=== PATIENT | male | born 1995 | race African-American/Black ===

== ENCOUNTER 2025-03-10 09:12 | Emergency (ER) | payer SELFPAY ==
--- NOTE | ~2025-03-10 | XR_ITS ---
EXAMINATION: XR chest 1V portable 03/10/2025 11:13 INDICATION: Cough and shortness of breath PROCEDURE: 2 view chest COMPARISON: No prior studies for comparison. FINDINGS: The lungs are clear. The cardiomediastinal silhouette is within normal limits. There are no pleural effusions. There is no pneumothorax suspected. IMPRESSION: 1: NO ACUTE CARDIOPULMONARY DISEASE. Reviewed, dictated and finalized at location O. IC ARTIST
[2025-03-10 09:21] VITALS: BP 140/65; PULSE 108; RESP 20; TEMP 37.2; O2SAT 97
--- OUTSIDE RECORDS SUMMARY | 2025-03-10 09:26 | XMS_ITS | Clinical Summary ---
Author Organization [facility] Address [facility] [place] [address] Care Team Providers Care Drying And Winding Supervisor Name Role Phone Unavailable Primary Care Provider Unavailabl e Encounters Date Type Department Care Team Description 03/10/2025 10:20 AM FOOT SETTER Office Visit [address] [phone] Shaylee Gray NP from Last 3 Months Social History Tobacco Use Types Packs/Day Years Used Date Smoking Tobacco: Never Assessed Sex and Gender Information Value Date Recorded Sex Assigned at Not on file Legal Sex Male 4:06 PM CDT Gender Identity Not on file Sexual Orientation Not on file Plan of Treatment Upcoming Encounters Date Type Department Care Team (Late st Contact Info) Description 03/10/2025 10:20 AM FOOT SETTER Office Visit [address] [phone] Shaylee Gray TITLE COORDINATOR [address] [place] [address] 07/18/2025 10:20 AM CDT Office Visit [facility] - [place] [address] [address] [place] [address] [place] [address] [place] [address] Health Maintenance Due Date Last Done Comments Annual Physical 2000 Hepatitis C 2015 DTaP, Tdap and Td Vaccines (7 - Td or Tdap) 09/26/2019 09/25/2009, 12/03/2001, 06/12/1998, Additional history exists HPV Vaccines (1 - 3-dose SCDM series) 2024 COVID-19 Vaccine (3 - season) 2024 09/02/2020, 08/08/2020 Influenza Adult (#1) 2024 Hepatitis B Vaccines Completed 1997, 1997, 1997 Meningococcal Vaccine Completed 08/23/2014, 009 Hepatitis A Vaccines Aged Out No long er eligible based on patient's age to complete this topic Meningococcal B Vaccine Aged Out No l onger eligible based on patient's age to complete this topic Pneumococcal Vaccine: Pediatrics (0 to 5 Years) and At-Risk Patients (6 to 49 Years) Aged Out No longer eligible based on patient's age to complete this topic RSV Immunizations Under 20 Months Aged Out No longer eligible based on patient's age to complete this topic
--- OUTSIDE RECORDS SUMMARY | 2025-03-10 10:20 | XMS_ITS | Encounter Summary ---
Author Organization [facility] Address [facility] [place] [address] Care Team Providers Care Ash Collector Name Role Phone Unavailable Primary Care Provider Unavailabl e Encounter Details Date Type Department Care Team (Late st Contact Info) Description 03/10/2025 10:20 AM HEALTH SERVICE WORKER Office Visit [facility] - [place] [address] [place] [phone] Shaylee Gray NP [address] [place] [address] Social History Tobacco Use Types Packs/Day Years Used Date Smoking Tobacco: Never Assessed Sex and Gender Information Value Date Recorded Sex Assigned at Not on file Legal Sex Male 4:06 PM CDT Gender Identity Not on file Sexual Orientation Not on file documented as of this encounter Plan of Treatment Upcoming Encounters Date Type Department Care Team (Late st Contact Info) Description 07/18/2025 10:20 AM CDT Office Visit [facility] Multispecialty Care - [place] [address] [address] [place] [address] Sue Owen MD [address] [place] [address] documented as of this encounter Visit Diagnoses Not on filedocumented in this encounter
--- OUTSIDE RECORDS SUMMARY | 2025-03-10 10:20 | XMS_ITS | Encounter Summary ---
Author Organization [facility] Address [facility] [place] [address] Care Team Providers Care Fry Cook Name Role Phone Unavailable Primary Care Provider Unavailabl e Encounter Details Date Type Department Care Team (Late st Contact Info) Description 03/10/2025 10:20 AM PHOTOGRAPHIC PRINTER Office Visit [facility] Family Medicine - [place] [address] [place] [address] Shaylee Gray NP [address] [place] [address] Social History Tobacco Use Types Packs/Day Years [...] Description 07/18/2025 10:20 AM CDT Office Visit [facility] Multispecialty Care - [place] [address] [address] [place] [address] Sue Owen MD [address] [place] [address] documented as of this encounter Visit Diagnoses Not on filedocumented in this encounter
[2025-03-10 10:24] VITALS: PULSE 94; RESP 18; O2SAT 99
[2025-03-10 10:52] LABS: Influenza A QL RT-PCR Positive (Negative); Influenza B QL RT-PCR Negative (Negative); RSV RNA, RT-PCR Negative (Negative); SARS-CoV-2 RNA PCR Negative (Negative)
--- NOTE | 2025-03-10 11:15 | ED_ITS ---
HPI - General Adult General Chief complaint: Upper Respiratory Infection Stated complaint: cold sx Time Seen by Provider: 03/10/25 10:48 History of Present Illness HPI narrative: 30-year-old male presenting to the emergency department for evaluation for sore throat body ache, low-grade fever chills and fatigue. Patient reports he did have some symptoms around but then felt improved. Patient returned from [place] and began having worsening symptoms yesterday. Patient denies any associated current nausea vomiting or diarrhea. Patient has had some cough and congestion. Related Data Allergies Allergy/AdvReac Type Severity Reaction Status Date / Time No Known Allergies Allergy Verified 03/10/25 09:25 Review of Systems Review of Systems: All systems reviewed & are unremarkable except as noted in HPI and below Exam Narrative: APPEARANCE: Well appearing, no pain, no distress, well-nourished. HEAD: normocephalic, atraumatic. EYES: PERRLA/EOMI, conjunctivae clear. NOSE: Normal no drainage EARS:TMS clear with good light reflex. THROAT: Pharynx clear, no exudate. NECK: Supple. No adenopathy, no masses. RESPIRATORY: Airway patent, respirations nonlabored. Clear to auscultation bilaterally, no rales, rhonchi, wheezing. CARDIOVASCULAR: Regular rate and rhythm without murmurs rubs or gallops. ABDOMINAL: Soft, nontender, nondistended, normal bowel sounds MUSCULOSKELETAL: Moves all extremities. Strength/ROM intact, No edema, No calf tenderness. NEURO: Alert. Cranial nerves II through XII intact. Good gait. Good coordination SKIN: Warm, dry. Normal Color Course Vital Signs Vital signs: Vital Signs Temperature 98.9 F 03/10/25 09:21 Pulse Rate 108 H 03/10/25 09:21 Respiratory Rate 20 03/10/25 09:21 Blood Pressure 140/65 03/10/25 09:21 Pulse Oximetry 97 03/10/25 09:21 Oxygen Delivery Room Air 03/10/25 09:21 Temperature 98.9 F 03/10/25 09:21 Pulse Rate 94 03/10/25 10:24 Respiratory Rate 18 03/10/25 10:24 Blood Pressure 140/65 03/10/25 09:21 Pulse Oximetry 97 03/10/25 11:56 Oxygen Delivery Room Air 03/10/25 11:56 MDM MDM Narrative Medical decision making narrative: 30-year-old male presents to the emergency department for evaluation for cough congestion body aches and fatigue. Patient was positive for influenza A patient was negative for RSV and for COVID. Chest x-ray showed no acute cardiopulmonary abnormality. Patient was discharged home with instructions for Tylenol ibuprofen albuterol and Tessalon Perles. Differential Diagnosis Differential Diagnosis: COVID, RSV, influenza, pneumonia Lab Data Labs: Lab Results 03/10/25 03/10/25 Range/Units 10:11 11:16 Influenza A (RT-PCR) Positive A (Negative) Influenza B (RT-PCR) Negative (Negative) RSV (RT-PCR) Negative (Negative) SARS-CoV-2 RNA (RT-PCR) Negative (Negative) Group A Strep (PCR) Not detected (Negative) Imaging Data Attestation: I personally reviewed and interpreted this imaging study as follows: My impression: Chest x-ray: No acute cardiopulmonary abnormality Radiologist's impression: ITS Impressions Chest X-Ray 03/10/25 11:14 IMPRESSION: 1: NO ACUTE CARDIOPULMONARY DISEASE. Discharge Plan Discharge Clinical Impression: Influenza Patient Disposition: Home Condition: Stable Instructions: Antibiotic Form, Influenza (ED), Viral Syndrome (ED) Additional Instructions: Tylenol and ibuprofen for pain control and for body aches fatigue. Tessalon Perles for cough. Albuterol as needed for shortness of breath. Have close follow-up with your primary care physician. Patient Language: Slovak Prescriptions: New benzonatate 100 mg capsule 100 mg PO TID PRN (Reason: cough) Qty: 14 0RF albuterol sulfate 90 mcg/actuation HFA aerosol inhaler 1 puff inhalation QID Qty: 6.7 0RF Follow-up/Referrals: PHYSICIAN,WIRE TWISTING MACHINE OPERATOR [Primary Care Provider, Internal Medicine]
[2025-03-10 11:46] LABS: Strep Group A RT-PCR NOT DETECTED (Negative)
--- OUTSIDE RECORDS SUMMARY | 2025-03-10 11:52 | XMS_ITS | Clinical Summary ---
Author Organization [facility] Address [facility] [place] [address] Care Team Providers Care Apn Name Role Phone Unavailable Primary Care Provider Unavailabl e Encounters Date Type Department Care Team Description 03/10/2025 10:20 AM GEOLOGY PROFESSOR Office Visit [facility] Family Medicine - [address] [phone] Shaylee Gray NP from Last 3 Months [...] Description 07/18/2025 10:20 AM CDT Office Visit [facility] Multispecialty [address] [place] [address] [address] [place] [address] Sue Owen MD [address] [place] [address] Health Maintenance Due Date Last Done Comments Annual Physical 2000 Hepatitis C 2015 DTaP, Tdap and Td Vaccines (7 - Td or Tdap) 09/26/2019 09/25/2009, 12/03/2001, 06/12/1998, Additional history exists HPV Vaccines (1 - 3-dose SCDM series) 2024 PHQ-2 (Physician [place]) 03/13/2024 COVID-19 Vaccine (3 - 2025-26 season) 2024 09/02/2020, 08/08/2020 Influenza Adult (#1) [...]
[2025-03-10 11:56] VITALS: O2SAT 97
== END 2025-03-10 11:56 | disposition home or self-care (01) ==
PROVIDERS: Physician Assistant; Emergency Provider Emergency Medicine
DX: J10.1 Influenza due to other identified influenza virus with other respiratory manifestations (principal); Z20.822 Contact with and (suspected) exposure to COVID-19
CPT/HCPCS: 71045; 87637; 87651; 99283